=== PATIENT | male | born 1950 | race Caucasian/White ===

== ENCOUNTER → 2020-02-23 08:13 | Outpatient (CLI) | payer MEDICARE, OTHER, SELFPAY ==
[2020-02-23 09:16] LABS: Alanine Aminotransferase 18 IU/L (<50); Albumin 4.3 g/dL (3.5-5.0); Albumin Globulin Ratio 1.8 (1.0-2.8); Alkaline Phosphatase 78 U/L (38-126); Aspartate Aminotransferase 25 IU/L (17-59); BUN Creatinine Ratio 13.5 (6-22); Bilirubin Total 0.7 mg/dL (0.2-1.3); Blood Urea Nitrogen 10 mg/dL (9-20); Calcium 9.4 mg/dL (8.4-10.2); Carbon Dioxide 26 mmol/L (22-32); Chloride 103 mmol/L (98-107); Cholesterol 185 mg/dL (140-199); Estimated Glomerular Filt Rate > 60.0 mL/min (>60); Globulin 2.4 g/dL (1.7-4.1); Glucose 86 mg/dL (80-110); HDL Cholesterol 106 mg/dL (40-60); HEMOLYSIS < 15 (0-50); LDL Cholesterol Calculated 65 mg/dL (<100); Potassium 4.5 mmol/L (3.4-5.1); Sodium 135 mmol/L (137-145); Total Protein 6.7 g/dL (6.3-8.2); Triglycerides 71 mg/dL (35-150)
== END ==
PROVIDERS: PCP Family Medicine; Referring Provider Internal Medicine; Visit Provider Internal Medicine
DX: E78.5 Hyperlipidemia, unspecified (principal)
CPT/HCPCS: 36415; 80053; 80061

== ENCOUNTER → 2021-02-21 09:31 | Outpatient (CLI) | payer MEDICARE, OTHER, SELFPAY ==
[2021-02-21 10:14] LABS: Alanine Aminotransferase 19 IU/L (<50); Albumin 4.7 g/dL (3.5-5.0); Albumin Globulin Ratio 1.5 (1.0-2.8); Alkaline Phosphatase 63 U/L (38-126); Aspartate Aminotransferase 30 IU/L (17-59); BUN Creatinine Ratio 10.1 (6-22); Bilirubin Total 0.7 mg/dL (0.2-1.3); Blood Urea Nitrogen 7 mg/dL (9-20); Calcium 9.8 mg/dL (8.4-10.2); Carbon Dioxide 24 mmol/L (22-32); Chloride 103 mmol/L (98-107); Cholesterol 204 mg/dL (140-199); Estimated Glomerular Filt Rate > 60.0 mL/min (>60); Globulin 3.1 g/dL (1.7-4.1); Glucose 89 mg/dL (80-110); HDL Cholesterol 99 mg/dL (40-60); HEMOLYSIS < 15 (0-50); LDL Cholesterol Calculated 80 mg/dL (<100); Potassium 4.5 mmol/L (3.4-5.1); Sodium 133 mmol/L (137-145); Total Protein 7.8 g/dL (6.3-8.2); Triglycerides 123 mg/dL (35-150)
== END ==
PROVIDERS: PCP Family Medicine; Referring Provider Internal Medicine; Visit Provider Internal Medicine
DX: I48.0 Paroxysmal atrial fibrillation (principal); E78.5 Hyperlipidemia, unspecified
CPT/HCPCS: 36415; 80053; 80061

== ENCOUNTER → 2021-04-06 07:53 | Outpatient (CLI) | payer MEDICARE, OTHER, SELFPAY ==
[2021-04-06 09:10] LABS: Cholesterol 186 mg/dL (140-199); HDL Cholesterol 99 mg/dL (40-60); LDL Cholesterol Calculated 67 mg/dL (<100); Triglycerides 102 mg/dL (35-150)
== END ==
PROVIDERS: PCP Family Medicine; Referring Provider Internal Medicine; Visit Provider Internal Medicine
DX: E78.5 Hyperlipidemia, unspecified (principal)
CPT/HCPCS: 36415; 80061

== ENCOUNTER → 2021-11-16 14:04 | Outpatient (CLI) | payer MEDICARE, OTHER, SELFPAY ==
--- NOTE | 2021-11-16 14:06 | DI.CT.S_ITS ---
PROCEDURE: CT SINUS SCREEN WO CON INDICATIONS: Acute recurrent pansinusitis TECHNIQUE: Noncontrast 3.0 mm axial images acquired from the frontal sinuses to the mid-sella, with coronal and sagittal reformats. For radiation dose reduction, the following was used: automated exposure control, adjustment of mA and/or kV according to patient size. COMPARISON: None. FINDINGS: Image quality: Excellent. Maxillary Sinuses: There is [id number] mucosal thickening within the maxillary sinuses, with mild air-fluid levels seen. The medial whittaker of the maxillary sinuses are demineralized, with a nonnative ostium seen along the medial wall of the left maxillary sinus. Ethmoid Air Cells: At least moderate mucosal thickening is seen within the ethmoid air cells. There is bony demineralization seen within the ethmoid air cells. Sphenoid Sinuses: There is at least moderate mucosal thickening within the right sphenoid sinus, with mild mucosal thickening within the left sphenoid sinus. Air-fluid levels are seen. The sinus whittaker appear demineralized. Frontal Sinuses: Mucosal thickening is seen within the inferior medial frontal sinuses, right worse than left. Mild bony demineralization can be seen inferiorly. Ostiomeatal Complexes: The ostiomeatal complexes are completely opacified and demineralized. Miscellaneous: Visualized intra-orbital contents are normal. No westley bullosa or paradoxical turbinate curvature. There is mild rightward nasal septal deviation. Abnormal soft tissue can be seen within the nasal cavity, which is attributed to polyps. IMPRESSION: Prominent widespread paranasal sinus disease is seen, with air-fluid levels noted, which are consistent with acute sinusitis. Numerous areas of bony demineralization are seen, which are consistent with chronic sinusitis. The ostiomeatal complexes are completely opacified and demineralized. Apparent nasal polyps can be seen. Mild rightward nasal septal deviation. Is Dictated by: Alden Romero M.D. on 11/16/2021 at 14:48 Approved by: Alden Romero M.D. on 11/16/2021 at 14:51
== END ==
PROVIDERS: PCP Family Medicine; Referring Provider Otolaryngology; Visit Provider Otolaryngology
DX: J01.41 Acute recurrent pansinusitis (principal); J32.4 Chronic pansinusitis; J34.2 Deviated nasal septum
CPT/HCPCS: 70486

== ENCOUNTER → 2021-12-25 09:24 | Outpatient (CLI) | payer MEDICARE, OTHER, SELFPAY ==
[2021-12-25 10:53] LABS: COVID19 -Nasal RAPID Negative (Negative)
== END ==
PROVIDERS: PCP Family Medicine; Visit Provider Family Medicine Sleep Medicine
DX: Z20.822 Contact with and (suspected) exposure to COVID-19 (principal)
CPT/HCPCS: 87635; C9803

== ENCOUNTER 2021-12-27 08:44 | Day surgery (SDC) | payer MEDICARE, OTHER, SELFPAY ==
[2021-12-24 13:10] VITALS: BMI 25.7
--- NOTE | 2021-12-27 | PATH_ITS ---
[facility] Accession Number: [id number] . 01 Material submitted: . PART A: nose - LEFT NASAL POLYP PART B: nose - RIGHT NASAL POLYP . 01 Diagnosis: A. Left Nasal Polyp, Excisions: Fragments of inflamed and edematous sinonasal mucosa with prominent eosinophils. Negative for malignancy. . B. Right Nasal Polyp, Excisions: Fragments of inflamed and edematous sinonasal mucosa with prominent eosinophils. Negative for malignancy. [facility] 01/01/2022 1232 Local . 01 Electronically signed: . Ravindra Vernon MD, Dermatopathologist NPI- [id number] . 01 Gross description: . A. Received in a container of formalin, labeled left nasal polyp, are three lyles-yellow, edematous, polypoid soft tissues measuring 3.0 x 2.5 x 0.4 cm in aggregate dimension. The specimen is submitted in toto in cassette A1. B. Received in a container of formalin, labeled right nasal polyp, are multiple lyles-pink, edematous, polypoid soft tissues measuring 3.0 x 2.5 x 1.0 cm in aggregate dimension. The largest fragment is bisected, and the cut surface consists of a smooth-lined cyst filled with yellow grumous material. The specimen is entirely submitted in cassettes B1 B2. ([id number]) /[facility] 12/29/2021 1419 Local . 01 Pathologist provided ICD-10: J33.9, J32.4 . 01 CPT . 747588, [id number] Specimen Comment: A courtesy copy of this report has been sent to [phone] Performed at: [address] [address], [place], [place] [id number] MD Matt Beltran MD Phone: [phone]
[2021-12-27] MEDS: OXYMETAZOLINE NASAL SPRAY 15 ML 2 SPRAYS NASAL ×2 (09:21→12:23)
[2021-12-27 09:22] VITALS: BP 157/77; PULSE 68; RESP 16; TEMP 36.7; O2SAT 99; BMI 26.0
[2021-12-27] MEDS: LACTATED RINGERS 1,000 ML 42 ML IV (09:37)
--- NOTE | 2021-12-27 10:36 | PM.PREOP ---
Pre-operative Note Interval Note History & Physical reviewed/Exam performed by Physician: Yes Changes to H&P: No
--- NOTE | 2021-12-27 11:21 | P.OP_ITS ---
Operative Date/Time/Diagnoses Date of procedure: 12/27/21 Time of procedure: 12:41 Pre-op diagnosis: Chronic rhinosinusitis with nasal polyposis, nasal airway obstruction, anosmia, rhinorrhea, chronic anticoagulation Post-op diagnosis: same Procedure & Clinicians Procedure: Bilateral endoscopic nasal polypectomy Same procedure as scheduled: Yes Indications: 71-year-old anticoagulated male with the above diagnoses incompletely managed with medical therapy presents for the above procedure. He held his Xarelto beginning 3 days ago as directed by his sack cleaner. Following discussion of the material risks benefits complications and alternatives, he elected to proceed. Surgeon: Ki Almaraz Click Yes if Unassisted: Yes Anesthesia Type: General Operative Notes Findings: Multiple polyps bilaterally, largest extending from each SER to occlude choana, additional polyps in each middle meatus and near olfactory cleft. No purulence. Specimen(s): other (Bilateral nasal polyps) Estimated Blood Loss (mL): 50 Procedure in detail: Following identification and confirmation of consent, the patient was brought to the operating room suite and placed in the supine position. General LMA anesthesia was administered. Cotton with 4% lidocaine and Afrin on pledgets was placed into the nose bilaterally for several minutes. Following sterile prep and drape, the packing was removed and under endoscopic guidance I infiltrated the posterior and anterior superior insertion of the each middle turbinate, as well as the base of each visible polyp. Polyps were resected and sent as a specimen from each side. The microdebrider resected any residual polyp tissue, followed by hemostasis with suction electrocautery on a setting of 10 at each polyp base. Small sponge counts were correct and he was extubated in the operating room and taken to recovery room in stable condition without no complication. Complications: none Post-operative Condition: stable Disposition: same day surgery Plan for aftercare: Nasal saline every hour while awake, begin irrigations t.i.d. tomorrow. Tylenol alternating with Advil for pain control, oxycodone for breakthrough pain. Elevate head of bed, no nose blowing, no straining for 2 weeks. Follow- up in 1 week
--- NOTE | 2021-12-27 12:08 | SUR.OPER ---
Supine on padded OR bed, head on gel dough nut, arms padded and tucked at sides, legs uncrossed, safety belt at thigh, tape over blanket over lower legs .
[2021-12-27] MEDS: LIDOCAINE 1% W/EPI 20 ML INJ (12:24)
[2021-12-27] MEDS: LIDOCAINE 4% SOLN 50 ML 20 ML TOP (12:24)
[2021-12-27] MEDS: EPINEPHrine 1 MG/ML 6 MG TOP (12:25)
[2021-12-27 12:55] VITALS: BP 172/89; PULSE 74; RESP 16; O2SAT 98
[2021-12-27 13:00] VITALS: BP 177/88; PULSE 71; RESP 16; O2SAT 97
[2021-12-27] MEDS: OXYCODONE IR 5 MG TABLET PO (13:09)
[2021-12-27 13:11] VITALS: BP 170/88; PULSE 72; RESP 16; TEMP 36.3
[2021-12-27 13:21] VITALS: BP 177/78; PULSE 75; RESP 16; TEMP 36.8; O2SAT 99
== END 2021-12-27 13:36 | disposition home or self-care (01) ==
PROVIDERS: PCP Family Medicine; Referring Provider Otolaryngology; Visit Provider Otolaryngology
PROC: (CPT 31231; principal; 2021-12-27 10:30)
DX: J33.9 Nasal polyp, unspecified (principal); J32.8 Other chronic sinusitis; J34.89 Other specified disorders of nose and nasal sinuses; R43.0 Anosmia; Z79.01 Long term (current) use of anticoagulants; Z86.73 Personal history of transient ischemic attack (TIA), and cerebral infarction without residual deficits
CPT/HCPCS: 31237; A9270; J0171; J1100; J2405; J2704; J3010

== ENCOUNTER → 2022-08-06 07:18 | Outpatient (CLI) | payer MEDICARE, OTHER, SELFPAY ==
[2022-08-06 08:13] LABS: Add Manual Diff / Slide Review NO; Basophils Absolute Auto 100 /uL (0-100); Basophils Percent Auto 0.8 % (0-2); Eosinophils Absolute Auto 900 /uL (0-450); Eosinophils Percent Auto 11.9 % (2-4); Hematocrit 41.7 % (41-53); Hemoglobin 13.7 g/dL (13.5-17.5); Lymphocytes Absolute Auto 2200 /uL (1100-4500); Lymphocytes Percent Auto 30.5 % (25-40); Mean Corpuscular Hemoglobin 28.8 PG (26-34); Mean Corpuscular Volume 87.5 fL (80-100); Monocytes Absolute Auto 600 /uL (0-900); Monocytes Percent Auto 8.4 % (3-14); Neutrophils Absolute Auto 3500 /uL (1500-7000); Neutrophils Percent Auto 48.4 % (50-75); Platelet Count 326 X10^3/uL (150-400); Red Blood Cell Count 4.76 X10^6/uL (4.5-5.9); Red Cell Distribution Width 13.7 % (11.6-14.8); White Blood Cell Count 7.2 X10^3/uL (4.5-11.0)
[2022-08-06 08:29] LABS: Alanine Aminotransferase 23 IU/L (<50); Albumin 4.3 g/dL (3.5-5.0); Albumin Globulin Ratio 1.4 (1.0-2.8); Alkaline Phosphatase 83 U/L (38-126); Aspartate Aminotransferase 28 IU/L (17-59); BUN Creatinine Ratio 11.3 (6-22); Bilirubin Total 0.6 mg/dL (0.2-1.3); Blood Urea Nitrogen 8 mg/dL (9-20); Calcium 9.1 mg/dL (8.4-10.2); Carbon Dioxide 25 mmol/L (22-32); Chloride 99 mmol/L (98-107); Cholesterol 190 mg/dL (140-199); Estimated Glomerular Filt Rate > 60 mL/min (>60); Glucose 90 mg/dL (80-110); HDL Cholesterol 88 mg/dL (40-60); HEMOLYSIS < 15 (0-50); LDL Cholesterol Calculated 84 mg/dL (<100); Potassium 4.2 mmol/L (3.4-5.1); Sodium 135 mmol/L (137-145); Total Protein 7.3 g/dL (6.3-8.2); Triglycerides 88 mg/dL (35-150)
== END ==
PROVIDERS: PCP Family Medicine; Referring Provider Internal Medicine; Visit Provider Internal Medicine
DX: E78.5 Hyperlipidemia, unspecified (principal)
CPT/HCPCS: 36415; 80053; 80061; 85025

== ENCOUNTER → 2023-10-15 08:13 | Outpatient (CLI) | payer MEDICARE, OTHER, SELFPAY ==
[2023-10-15 09:23] LABS: Cholesterol 194 mg/dL (140-199); HDL Cholesterol 105 mg/dL (40-60); LDL Cholesterol Calculated 70 mg/dL (<100); Triglycerides 96 mg/dL (35-150)
== END ==
PROVIDERS: PCP Family Medicine; Referring Provider Nurse Practitioner Acute Care; Visit Provider Nurse Practitioner Acute Care
DX: E78.00 Pure hypercholesterolemia, unspecified (principal)
CPT/HCPCS: 36415; 80061

== ENCOUNTER → 2023-11-20 15:09 | Outpatient (CLI) | payer MEDICARE, OTHER, SELFPAY ==
[2023-11-20 17:01] LABS: Add Manual Diff / Slide Review NO; Basophils Absolute Auto 0 /uL (0-100); Basophils Percent Auto 0.4 % (0-2); Eosinophils Absolute Auto 100 /uL (0-450); Eosinophils Percent Auto 0.7 % (2-4); Hematocrit 40.1 % (41-53); Hemoglobin 13.5 g/dL (13.5-17.5); Lymphocytes Absolute Auto 1300 /uL (1100-4500); Lymphocytes Percent Auto 14.5 % (25-40); Mean Corpuscular HGB Conc 33.6 % (30-36); Mean Corpuscular Hemoglobin 30.3 PG (26-34); Mean Corpuscular Volume 90.3 fL (80-100); Monocytes Absolute Auto 1000 /uL (0-900); Monocytes Percent Auto 11.6 % (3-14); Neutrophils Absolute Auto 6600 /uL (1500-7000); Neutrophils Percent Auto 72.8 % (50-75); Platelet Count 320 X10^3/uL (150-400); Red Blood Cell Count 4.44 X10^6/uL (4.5-5.9)
[2023-11-20 17:58] LABS: Albumin 4.6 g/dL (3.5-5.0); BUN Creatinine Ratio 24.7 (6-22); Blood Urea Nitrogen 18 mg/dL (9-20); Calcium 9.6 mg/dL (8.4-10.2); Carbon Dioxide 29 mmol/L (22-32); Chloride 100 mmol/L (98-107); Estimated Glomerular Filt Rate > 60 mL/min (>60); Glucose 101 mg/dL (80-110); HEMOLYSIS < 15 (0-50); Potassium 4.9 mmol/L (3.4-5.1); Sodium 133 mmol/L (137-145)
[2023-11-20 18:01] LABS: Hemoglobin A1C% w Est Avg Glu 5.2 % (4.0-6.0)
[2023-11-20 18:10] LABS: Prealbumin 32.9 mg/dL (17.6-36.0)
== END ==
LOC: LAB 15:11
PROVIDERS: PCP Family Medicine; Referring Provider Orthopaedic Surgery Adult Reconstructive Orthopaedic Surgery; Visit Provider Orthopaedic Surgery Adult Reconstructive Orthopaedic Surgery
DX: Z01.818 Encounter for other preprocedural examination (principal); E55.9 Vitamin D deficiency, unspecified; R73.9 Hyperglycemia, unspecified; Z01.812 Encounter for preprocedural laboratory examination; R77.0 Abnormality of albumin
CPT/HCPCS: 36415; 80048; 82040; 82306; 83036; 84134; 85025; 93005

== ENCOUNTER → 2024-09-10 06:58 | Outpatient (CLI) | payer MEDICARE, OTHER, SELFPAY ==
[2024-09-10 07:45] LABS: Hematocrit 39.2 % (41-53); Hemoglobin 13.3 g/dL (13.5-17.5); Mean Corpuscular HGB Conc 33.9 % (30-36); Mean Corpuscular Hemoglobin 29.1 PG (26-34); Mean Corpuscular Volume 85.7 fL (80-100); Platelet Count 318 X10^3/uL (150-400); Red Blood Cell Count 4.57 X10^6/uL (4.5-5.9); White Blood Cell Count 6.2 X10^3/uL (4.5-11.0)
[2024-09-10 08:06] LABS: Alanine Aminotransferase 19 IU/L (<50); Albumin 4.3 g/dL (3.5-5.0); Albumin Globulin Ratio 1.7 (1.0-2.8); Alkaline Phosphatase 76 U/L (38-126); Aspartate Aminotransferase 28 IU/L (17-59); BUN Creatinine Ratio 12.7 (6-22); Bilirubin Total 0.8 mg/dL (0.2-1.3); Blood Urea Nitrogen 10 mg/dL (9-20); Calcium 9.3 mg/dL (8.4-10.2); Carbon Dioxide 25 mmol/L (22-32); Chloride 98 mmol/L (98-107); Cholesterol 189 mg/dL (140-199); Estimated Glomerular Filt Rate > 60 mL/min (>60); Globulin 2.5 g/dL (1.7-4.1); Glucose 93 mg/dL (80-110); HDL Cholesterol 95 mg/dL (40-60); HEMOLYSIS < 15 (0-50); LDL Cholesterol Calculated 79 mg/dL (<100); Potassium 4.7 mmol/L (3.4-5.1); Sodium 129 mmol/L (137-145); Total Protein 6.8 g/dL (6.3-8.2); Triglycerides 74 mg/dL (35-150)
== END ==
PROVIDERS: PCP Family Medicine; Referring Provider Internal Medicine; Visit Provider Internal Medicine
DX: I48.0 Paroxysmal atrial fibrillation (principal); E78.00 Pure hypercholesterolemia, unspecified
CPT/HCPCS: 36415; 80053; 80061; 85027

== ENCOUNTER → 2025-01-07 09:03 | Outpatient (CLI) | payer MEDICARE, OTHER, SELFPAY ==
[2025-01-07 10:03] LABS: BUN Creatinine Ratio 14.7 (6-22); Blood Urea Nitrogen 11 mg/dL (9-20); Carbon Dioxide 20 mmol/L (22-32); Chloride 103 mmol/L (98-107); Estimated Glomerular Filt Rate > 60 mL/min (>60); Glucose 103 mg/dL (70-99); HEMOLYSIS 44 (0-50); Phosphorous 3.1 mg/dL (2.3-3.7); Potassium 4.6 mmol/L (3.4-5.1); Sodium 134 mmol/L (137-145)
[2025-01-10 13:40] LABS: Osmolality Urine 778 mOsmol/kg (.)
== END ==
PROVIDERS: PCP Family Medicine; Referring Provider Internal Medicine Nephrology; Visit Provider Internal Medicine Nephrology
DX: E22.2 Syndrome of inappropriate secretion of antidiuretic hormone (principal); E83.42 Hypomagnesemia
CPT/HCPCS: 36415; 80048; 83735; 83935; 84100